=== PATIENT | female | born 1955 | race Two or more races ===

== ENCOUNTER 2020-05-31 06:16 | Outpatient (CLI) | payer OTHER | END 2020-05-31 23:59 | disposition home or self-care (01) | LOC: LAB 06:16 | PROVIDERS: ATTEND Specialist | DX: Z01.812 Encounter for preprocedural laboratory examination (principal); Z20.822 Contact with and (suspected) exposure to COVID-19 | CPT/HCPCS: C9803; U0003 ==

== ENCOUNTER 2020-06-06 07:12 | Day surgery (SDC) | payer OTHER ==
[~2020-06-06 07:12] MED LIST: EPINEPHRINE (1:1000) 1 MG/ML AMPUL ONE; LIDOCAINE 1% INJ 50 ML MDV IJ ONE; methylPREDNISolone ACETATE 80 MG/ML VIAL ONE
[2020-06-06] MEDS ORDERED: FENTANYL PF 100MCG/2ML AMPUL ONE (09:23)
[2020-06-06] MEDS ORDERED: MIDAZOLAM HCL 2 MG/2ML VIAL ONE (09:23)
[2020-06-06] MEDS ORDERED: FENTANYL PF 250MCG/5ML AMPUL ONE (09:23)
[2020-06-06] MEDS ORDERED: HYDROMORPHONE INJ 2 MG/ML DISP.SYRIN ONE (09:24)
[2020-06-06] MEDS ORDERED: BUPIVACAINE 0.5 % PF 150 MG/30 ML VIAL ONE (09:24)
[2020-06-06] MEDS ORDERED: FAMOTIDINE/PF INJ 20 MG/2 ML VIAL IV ONE (09:25)
[2020-06-06] MEDS ORDERED: ROCURONIUM BROMIDE 50 MG/5 ML ONE (09:25)
[2020-06-06] MEDS ORDERED: GLYCOPYRROLATE 0.2 MG/ML VIAL ONE (10:11)
== END 2020-06-06 12:20 | disposition home or self-care (01) ==
LOC: DS 07:12
PROVIDERS: ATTEND Specialist
DX: M75.41 Impingement syndrome of right shoulder (principal); M65.811 Other synovitis and tenosynovitis, right shoulder; M94.211 Chondromalacia, right shoulder; I10 Essential (primary) hypertension; Z79.899 Other long term (current) drug therapy
CPT/HCPCS: 29824; 29826; A4217; C1713; J0171; J0690; J1170; J2250; J2704; J2765; J3010 ×2; J3490 ×5; J1040

== ENCOUNTER 2020-11-16 08:05 | Outpatient (CLI) | payer OTHER | END 2020-11-16 23:59 | disposition home or self-care (01) | LOC: LAB 08:05 | PROVIDERS: ATTEND Specialist | DX: Z01.812 Encounter for preprocedural laboratory examination (principal); Z20.822 Contact with and (suspected) exposure to COVID-19 | CPT/HCPCS: C9803; U0003 ==

== ENCOUNTER 2020-11-21 07:34 | Day surgery (SDC) | payer OTHER ==
[2020-11-21] MEDS ORDERED: KETAMINE HCL (500MG/10ML) 50 MG/ML VIAL ONE (08:37)
[2020-11-21] MEDS ORDERED: LABETALOL HCL IV 100MG VIAL ONE (09:03)
== END 2020-11-21 11:20 | disposition home or self-care (01) ==
LOC: DS 07:34
PROVIDERS: ATTEND Specialist
DX: M24.611 Ankylosis, right shoulder (principal); I10 Essential (primary) hypertension; Z98.890 Other specified postprocedural states; Z79.899 Other long term (current) drug therapy
CPT/HCPCS: 23700; J3490 ×3; J7030